=== PATIENT | male | born 1960 | race African-American/Black ===

== ENCOUNTER 2020-05-05 00:48 | Observation (INO) | payer OTHER, SELFPAY ==
[~2020-05-05] VITALS: Ht 188 cm; Wt 123.4 kg
[2020-05-05 01:05] VITALS: BP 140/90
[2020-05-05] MEDS ORDERED: NACL 0.9% 1,000 ML IV ONE (01:45)
[2020-05-05] MEDS ORDERED: INSULIN REGULAR, HUMAN 100 UNIT/ML VIAL SUBQ ONE (01:45)
[2020-05-05] MEDS ORDERED: DOPPLER MC ONE (01:48)
[2020-05-05] MEDS ORDERED: INTUBATION KIT MC ONE (01:51)
[2020-05-05 01:53] LABS: BASOPHILS # (AUTO) 0.1 K/uL (0.00-0.22); BASOPHILS % (AUTO) 0.9 % (0.0-2.0); EOSINOPHILS # (AUTO) 0.2 K/uL (0-0.4); EOSINOPHILS % (AUTO) 2.8 % (0.0-4.0); HEMATOCRIT 38.9 % (36-52); HEMOGLOBIN 12.9 g/dL (12.0-18.0); LYMPHOCYTES # (AUTO) 2.8 K/uL (2.0-11.5); LYMPHOCYTES % (AUTO) 42.8 % (20.5-51.1); MEAN CORPUSCULAR HEMOGLOBIN 31 pg (27-31); MEAN CORPUSCULAR HGB CONC 33 g/dL (33-37); MEAN CORPUSCULAR VOLUME 92.9 fL (80-94); MONOCYTES # (AUTO) 0.8 K/uL (0.8-1.0); MONOCYTES % (AUTO) 12.2 % (1.7-9.3); NEUTROPHILS # (AUTO) 2.7 K/uL (1.8-7.7); NEUTROPHILS % (AUTO) 41.3 % (42.2-75.2); PLATELET COUNT (AUTO) 376 K/uL (140-450); RED BLOOD CELL COUNT(AUTO) 4.19 MIL/uL (4.20-6.10); WHITE BLOOD COUNT (AUTO) 6.5 K/uL (4.8-10.8)
[2020-05-05 02:17] LABS: ALBUMIN 3.4 g/dL (3.4-5.0); ANION GAP 9.2 (8-16); ASPARTATE AMINOTRANSFERASE 11 U/L (15-37); CHLORIDE 95 mmol/L (98-107); CREATININE 1.5 mg/dL (0.6-1.3); GFR ARICAN-AMERICAN 61 mL/min (>90); POTASSIUM 4.2 mmol/L (3.5-5.1); SODIUM SERUM 128 mmol/L (136-145); TOTAL BILIRUBIN 0.6 mg/dL (0.0-1.0); UREA NITROGEN, BLOOD 14 mg/dL (7-18)
[2020-05-05 02:18] LABS: GLUCOSE 608 mg/dL (74-106)
[2020-05-05] MEDS ORDERED: HYDROcodone/APAP 5/325 MG 1 TAB TAB PO ONE ×2 (02:25→03:35)
[2020-05-05 02:28] LABS: BARBITURATE, URINE NEGATIVE ng/ml (NEG <=200); BENZODIAZEPINE, URINE NEGATIVE ng/mL (NEG <=200); CANNABINOID, URINE NEGATIVE ng/mL (NEG <=50); COCAINE, URINE NEGATIVE ng/mL (NEG <=300); OPIATE, URINE NEGATIVE ng/mL (NEG <=2000); PHENCYCLIDINE SCREEN,URINE NEGATIVE ng/mL (NEG <=25)
[2020-05-05] MEDS ORDERED: ASPIRIN 325 MG TAB PO ONE (03:20)
[2020-05-05] MEDS ORDERED: NITROGLYCERIN 0.4 MG TAB SL ONE (03:35)
[2020-05-05] MEDS ORDERED: ONDANSETRON 4 MG/2 ML VIAL IVP PRN (05:25)
[2020-05-05] MEDS ORDERED: DEXTROSE 50% 50 ML SYR IVP PRN (05:25)
[2020-05-05] MEDS ORDERED: ACETAMINOPHEN 325 MG TAB PO PRN (05:25)
[2020-05-05] MEDS: MORPHINE SULFATE 2 MG/ML SYR IVP PRN (06:44)
[2020-05-05 07:09] LABS: CREATINE KINASE MB 1.6 ng/mL (0-3.6)
[2020-05-05] MEDS: BLOOD GLUCOSE MONITORING 1 DEV DEV FS SCH ×4 (07:32→20:07)
[2020-05-05] MEDS: INSULIN LISPRO SLIDING SCALE 100 UNITS/ML VIAL SUBQ PRN ×4 (07:46→20:08)
[2020-05-05 08:30] VITALS: BP 146/91
[2020-05-05] MEDS: ENOXAPARIN 40 MG/0.4 ML SYR SUBQ SCH (09:14)
[2020-05-05 12:00] VITALS: BP 133/82
[2020-05-05 12:37] LABS: ANION GAP 7.9 (8-16); CARBON DIOXIDE 28.3 mmol/L (21-32); POTASSIUM 4.2 mmol/L (3.5-5.1)
[2020-05-05 16:00] VITALS: BP 142/92
[2020-05-05] MEDS ORDERED: DIT5 PO (17:27)
[2020-05-05] MEDS ORDERED: PAM25 PO (17:27)
[2020-05-05] MEDS ORDERED: ATOR40TA PO (17:27)
[2020-05-05] MEDS ORDERED: MELO15TA11 PO (17:27)
[2020-05-05] MEDS ORDERED: FURO-570 PO (17:27)
[2020-05-05] MEDS ORDERED: ASPI-1129 PO (17:27)
[2020-05-05] MEDS ORDERED: ACET-9535 PO (17:27)
[2020-05-05] MEDS ORDERED: METO50TE2 PO (17:27)
[2020-05-05] MEDS ORDERED: MIRA25TE PO (17:27)
[2020-05-05] MEDS ORDERED: IBUP200C97 PO (17:27)
[2020-05-05] MEDS ORDERED: BENA40TA PO (17:27)
[2020-05-05] MEDS ORDERED: ISOS10TA9 PO (17:27)
[2020-05-05] MEDS ORDERED: METF1000 PO (17:27)
[2020-05-05] MEDS ORDERED: LANTUS SUBQ (17:27)
[2020-05-05] MEDS ORDERED: CYCL10TA33 PO (17:27)
[2020-05-05] MEDS ORDERED: SPIR50TA PO (17:27)
[2020-05-05 20:00] VITALS: BP 148/79
[2020-05-05] MEDS ORDERED: ATORVASTATIN 20 MG TAB PO SCH (21:00)
[2020-05-06] VITALS: BP 159/94
[2020-05-06] MEDS: MORPHINE SULFATE 2 MG/ML SYR IVP PRN ×2 (00:15→06:15)
[2020-05-06 04:00] VITALS: BP 161/97
[2020-05-06] MEDS: BLOOD GLUCOSE MONITORING 1 DEV DEV FS SCH ×2 (06:14→12:23)
[2020-05-06] MEDS: INSULIN LISPRO SLIDING SCALE 100 UNITS/ML VIAL SUBQ PRN ×2 (06:15→12:23)
[2020-05-06 07:14] LABS: BASOPHILS % (AUTO) 0.7 % (0.0-2.0); EOSINOPHILS # (AUTO) 0.4 K/uL (0-0.4); HEMATOCRIT 38.1 % (36-52); HEMOGLOBIN 12.6 g/dL (12.0-18.0); LYMPHOCYTES # (AUTO) 3.3 K/uL (2.0-11.5); LYMPHOCYTES % (AUTO) 45.7 % (20.5-51.1); MEAN CORPUSCULAR HEMOGLOBIN 31 pg (27-31); MEAN CORPUSCULAR HGB CONC 33 g/dL (33-37); MEAN CORPUSCULAR VOLUME 92.6 fL (80-94); MONOCYTES # (AUTO) 0.6 K/uL (0.8-1.0); MONOCYTES % (AUTO) 8.2 % (1.7-9.3); NEUTROPHILS # (AUTO) 2.9 K/uL (1.8-7.7); NEUTROPHILS % (AUTO) 40.4 % (42.2-75.2); PLATELET COUNT (AUTO) 359 K/uL (140-450); RED BLOOD CELL COUNT(AUTO) 4.11 MIL/uL (4.20-6.10); WHITE BLOOD COUNT (AUTO) 7.1 K/uL (4.8-10.8)
[2020-05-06 07:37] LABS: ANION GAP 12.5 (8-16); CARBON DIOXIDE 25.7 mmol/L (21-32); CREATININE 0.9 mg/dL (0.6-1.3); POTASSIUM 4.2 mmol/L (3.5-5.1)
[2020-05-06 07:53] LABS: CREATINE KINASE MB 0.8 ng/mL (0-3.6)
[2020-05-06 08:00] VITALS: BP 159/106
[2020-05-06] MEDS: ENOXAPARIN 40 MG/0.4 ML SYR SUBQ SCH (08:33)
[2020-05-06] MEDS ORDERED: ASPIRIN 81 MG TAB.CHEW PO SCH (09:00)
[2020-05-06] MEDS ORDERED: LOSARTAN 50 MG TAB PO SCH (09:00)
[2020-05-06 12:00] VITALS: BP 150/92
[2020-05-06] MEDS ORDERED: INSU-1165 SQ (12:08)
[2020-05-06] MEDS ORDERED: IBUP200C97 PO (12:08)
[2020-05-06] MEDS ORDERED: DIT5 PO (12:08)
[2020-05-06] MEDS ORDERED: ATOR40TA PO (12:08)
[2020-05-06] MEDS ORDERED: DOXY100C9 PO (12:08)
[2020-05-06] MEDS ORDERED: METO50TE2 PO (12:08)
[2020-05-06] MEDS ORDERED: PAM25 PO (12:08)
[2020-05-06] MEDS ORDERED: FURO-570 PO (12:08)
[2020-05-06] MEDS ORDERED: METF1000 PO (12:08)
[2020-05-06] MEDS ORDERED: MIRA25TE PO (12:08)
[2020-05-06] MEDS ORDERED: ISOS10TA9 PO (12:08)
[2020-05-06] MEDS ORDERED: BENA40TA PO (12:08)
[2020-05-06] MEDS ORDERED: SPIR50TA PO (12:08)
[2020-05-06] MEDS ORDERED: MELO15TA11 PO (12:08)
== END 2020-05-06 14:25 | disposition home or self-care (01) ==
LOC: MED 00:48 → MTU 05:28
PROVIDERS: ADMIT Internal Medicine; ATTEND Internal Medicine
DX: R07.89 Other chest pain (principal); Z20.822 Contact with and (suspected) exposure to COVID-19; I11.9 Hypertensive heart disease without heart failure; E11.65 Type 2 diabetes mellitus with hyperglycemia; R94.31 Abnormal electrocardiogram [ECG] [EKG]; F17.290 Nicotine dependence, other tobacco product, uncomplicated; Z59.0 Homelessness; Z91.14 Patient's other noncompliance with medication regimen
CPT/HCPCS: 36415; 70450; 71045; 73030; 80048; 80053; 80305; 82550; 82553; 82948; 83036; 83735; 84484; 85025; 87081; 87426; 93005; 96361; 96372; 96374; 96376; 99285; G0378; G0482; J1650; J1815; J2270; J7030